=== PATIENT | female | born 1995 | race Hispanic/Latino ===

== ENCOUNTER 2017-06-10 19:07 | Emergency (ER) | payer OTHER ==
[2017-06-10 19:30] VITALS: BP 120/75; PULSE 84; RESP 18; TEMP 98.6; O2SAT 99
[2017-06-10] MEDS ORDERED: Naproxen 550 mg Tab PO STA (20:24)
[2017-06-10] MEDS ORDERED: Naproxen 550 mg Tab PO ONE (20:29)
--- NOTE | 2017-06-10 21:03 | C.PDOC ---
History Of Present Illness 22 year old female presents to the ED c/o left knee pain for the past week. Patient reports that tonight at work while lifting a heavy tray she felt a "tearing sensation" in her knee. Patient is ambulatory in the ED but with some discomfort. Patient denies weakness, numbness, rash, recent injury, trauma, fall. Time Seen by Provider: 06/10/17 19:50 Chief Complaint (Nursing): Lower Extremity Problem/Injury History Per: Patient History/Exam Limitations: no limitations Onset/Duration Of Symptoms: Days Current Symptoms Are (Timing): Still Present Recent travel outside of the [place]: No Additional History Per: Patient - Knee Description Of Injury: Other (lifting heavy object) Past Medical History Reviewed: Historical Data, Nursing Documentation, Vital Signs Vital Signs: Last Vital Signs Temp 98.6 F 06/10/17 19:26 Pulse 84 06/10/17 19:26 Resp 18 06/10/17 19:26 BP 120/75 06/10/17 19:26 Pulse Ox 99 06/10/17 23:51 - Medical History PMH: Anemia Surgical History: No Surg Hx Family History: States: Unknown Family Hx - Social History Hx Alcohol Use: Yes Hx Substance Use: No - Immunization History Hx Tetanus Toxoid Vaccination: No Hx Influenza Vaccination: No Hx Pneumococcal Vaccination: No Review Of Systems Constitutional: Negative for: Fever, Chills Cardiovascular: Negative for: Chest Pain, Palpitations Respiratory: Negative for: Cough, Shortness of Breath Gastrointestinal: Negative for: Nausea, Vomiting, Abdominal Pain Musculoskeletal: Positive for: Leg Pain (left knee) Skin: Negative for: Rash Neurological: Negative for: Weakness, Numbness Physical Exam - Physical Exam Appears: Non-toxic, No Acute Distress Skin: Normal Color, Warm, Dry Head: Atraumatic, Normacephalic Nose: No Discharge Oral Mucosa: Moist Extremity: No Normal ROM (Limited left knee secondary to pain), No Tenderness, Capillary Refill (< 2 seconds), No Deformity, No Swelling Pulses: Left Dorsalis Pedis: Normal, Right Dorsalis Pedis: Normal Neurological/Psych: Oriented x3, Normal Speech, Normal Cognition Gait: Steady ED Course And Treatment O2 Sat by Pulse Oximetry: 99 (On RA) Pulse Ox Interpretation: Normal Medical Decision Making Medical Decision Making: Plan: Left knee Xray Anaprox 550 mg PO knee brace and crutches were given to the patient, Disposition - Disposition Referrals: Daniel Hopper MD [Staff Provider] - [facility] at [facility] [place] [Outside] Disposition: HOME/ ROUTINE Disposition Time: 21:01 Condition: GOOD Additional Instructions: Follow up with the medical doctor within 1-2 days. return if worsened. Prescriptions: Naproxen [Naprosyn] 500 mg PO BID #20 tab Instructions: Knee Sprain (ED) Forms: [employer] (Chinese), Work Excuse - Clinical Impression Clinical Impression: Knee pain - PA / RN WELLNESS / Resident Statement MD/DO has reviewed & agrees with the documentation as recorded. - Scribe Statement The provider has reviewed the documentation as recorded by the Scribe Mekhi Hall All medical record entries made by the Scribe were at my direction and personally dictated by me. I have reviewed the chart and agree that the record accurately reflects my personal performance of the history, physical exam, medical decision making, and the department course for this patient. I have also personally directed, reviewed, and agree with the discharge instructions and disposition.
--- NOTE | 2017-06-11 09:32 | RAD ---
PROCEDURE: Left Knee Radiographs. HISTORY: Pain. COMPARISON: None. FINDINGS: BONES: Bone alignment and mineralization are normal. There is no acute displaced fracture or bone destruction. JOINTS: Normal. JOINT EFFUSION: There is a small suprapatellar joint effusion. OTHER FINDINGS: None. IMPRESSION: No acute fracture or dislocation. Small suprapatellar joint effusion.
== END 2017-06-10 21:21 | disposition home or self-care (01) ==
LOC: SUPCPDRO 19:07 → C.ER 19:07
DX: M25.562 Pain in left knee (principal)